=== PATIENT | female | born 1960 | race Caucasian/White ===

== ENCOUNTER 2017-05-17 16:47 | Emergency (ER) | payer OTHER ==
[~2017-05-17] VITALS: Ht 177.8 cm; Wt 80.3 kg
[2017-05-17] MEDS ORDERED: METFORMIN ER500 MG PO (16:59)
[2017-05-17] MEDS ORDERED: PHENERGAN25 M3 PO (17:00)
--- NOTE | 2017-05-17 17:16 | Emergency Room Report ---
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 Y Clinical Suspician of Infection? N Mental Status: 1 - Regular (Normal Baseline) Sepsis Risk:Low Sepsis Risk Have you (or family members/close friends) recently traveled outside the [place]? N If Yes, where/when: Have you had exposure to infectious disease within the past month? N TB? Other? Specify: Patient has had shortness of breath since Tuesday malaise and fatigue she states she's felt feverish on and off she is on an antibiotic for urinary tract infection and she states she was sent in for evaluation of possible new onset congestive heart failure. She has a cough this nonproductive some nausea denies any vomiting or diarrhea she denies any chills. She's had some headache but denies any headache now. He has any chest pain or abdominal pain she states she had some swelling in her legs about a week ago but none now. Denies any myalgias has weakness and malaise and fatigue dyspnea on exertion ALLERGIES Coded Allergies: Sulfa (Sulfonamide Antibiotics) (Intermediate, I-RASH 05/17/17) ciprofloxacin (From CIPRO) (Intermediate, I-RASH 05/17/17) nitrofurantoin (From MACROBID) (Intermediate, S-DIFF. BREATHING 05/17/17) Home Medications Reported Medications METFORMIN HCL (Metformin HCl ER) 500 MG PO BID #30 PROMETHAZINE HCL (Phenergan 25MG Tab (Geq)) 25 MG PO Q6HP PRN N/V #30 History Medical History General CAD? No Angina: No NM: No Hypertension? No Hyperlipidemia? No CHF? No DVT? No PE? No COPD? No Asthma? No Anemia? No GERD? No Gastric ulcers? No GI Bleed? No Hernia? No Thyroid Problems? No Hypothyroidism? No CVA? No Seizures? No Diabetes? Yes Insulin Dependent: No Insulin Pump: No Home FSBS? Yes Renal Insuffiency? No End Stage Renal Disease? No UTI? No Stones? No BPH? No GB Disease: No Nephritic Syndrome? No Asplenia? No Hepatitis? No Sickle Cell Disease? No Arthritis? No Migraines? No Cataracts? No Glaucoma? No MRSA? No HIV? No TB? No Anxiety? No Depression? No Cancer? No More? No Immunization Hx DT/Tetanus Unknown Surgical Hx Previous Surgery?Y APENDECTOMY LADLER Hx LMP N/A Social History Smoking Hx Smoker: Never Smoker Tobacco: No Alcohol Alcohol: No Review of Systems All Other Systems Reviewed and Negative Physical Exam Vital Signs Vital Signs Date Time Temp Pulse Resp B/P Pulse O2 O2 Flow FiO2 Ox Delivery Rate 05/17 1853 77 18 172/80 98 05/17 1825 69 18 157/71 98 05/17 1739 100 05/17 1653 99.0 76 16 156/96 99 General Appearance: Nontoxic Head: Normocephalic, without obvious abnormality, atraumatic. Eyes: conjunctiva/corneas clear ENT: Mucous membranes moist. Neck: No jugular venous distention. Cardiac: regular rate and rhythm Lungs: rhonchi auscultation bilaterally Abdomen: Nontender, Nondistended, positive bowel sounds, no rebound : No CVA tenderness Extremities: Trace edema Musculoskeletal: No chest wall tenderness Skin: No rashes or lesions to exposed skin. Neurologic: Alert. No gross focal deficits Psychiatric: Normal affect (Chrystal OLIVAS, Carlos) General Appearance normal appearance Respiratory Status No: respiratory distress. Cardiovascular no JVD Neurologic alert Medical Decision Making LABS/Meds/Orders Pt receiving controlled substance in ED? No Comment 646 the lab machine is down for the d-dimer and BNP is pending, urine here is grossly contaminated with epithelial cells will repeat a cath UA She states she's already been switched to another antibiotic that she has not picked up for her urinary tract infection she has a prescription at home she states her family doctor called her with a urine culture results and have her switch her antibiotics. There is no congestive heart failure present the BMP and chest x-ray are unremarkable we have checked for blood clots the d-dimer is normal. 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 Results/Orders Laboratory Tests 05/17/17 1905: Creatine Kinase Pending, CK-MB (CK-2) Rel Index Pending, CK and CKMB Interp Pending, Troponin I Pending 05/17/17 1739: Urine Color YELLOW, Urine Appearance CLEAR, Urine pH 7.0, Ur Specific [place] <= 1.005, Urine Protein NEGATIVE, Urine Ketones 1+ H, Urine Blood NEGATIVE, Urine Nitrate NEGATIVE, Urine Bilirubin NEGATIVE, Urine Urobilinogen 0.2, Ur Leukocyte Esterase 2+ H, Urine RBC NONE, Urine WBC 20-50, Ur Squamous Epith Cells 20-50, Urine Renal Cells 5-10, Urine Bacteria 1+, Urine Glucose NEGATIVE 05/17/17 1720: Lactic Acid 2.3 H 05/17/17 1720: Sodium 132 L, Potassium 4.2, Chloride 94 L, Carbon Dioxide 25, BUN 17, Creatinine 1.1 H, Estimated Creat Clear 71, Estimated GFR (MDRD) 51 L, Glucose 266 H, Calcium 9.9, B-Natriuretic Peptide 22, D-Dimer 347, WBC 11.9 H, RBC 4.84, Hgb 14.3, Hct 43.7, MCV 90.3, RDW 12.9, Plt Count 612 H, MPV 7.1 L, Gran % 69.2, Gran # 8.2 H, Lymphocytes % 27.0, Monocytes % 2.7, Eosinophils % 0.8, Basophils % 0.4, Lymphocytes # 3.2, Monocytes # 0.3, Eosinophils # 0.1, Basophils # 0.1, PUBS MCHC 32.7, MCH 29.5 Current Medication Orders Sig/Santino Start time Last Medication Dose Route Stop Time Status Admin Albuterol/Ipratropium 3 ML ONCE ONE 05/17 1915 DC INH 05/17 1916 Ondansetron HCl 4 MG ONCE ONE 05/17 1715 DC IV 05/17 1716 Sodium Chloride 10 ML PRN PRN 05/17 1715 AC IV 05/18 171 Orders Procedure Date/time Status CARDIAC ENZYMES 05/17 2200 Active RT REQUEST DUONEB 05/17 1905 Active CARDIAC ENZYMES 05/17 1900 Active URINALYSIS/COMPLETE 05/17 1847 Active LACTIC ACID FOLLOW UP 05/17 1754 Active CULTURE, URINE 05/17 173 Active CULTURE, BLOOD 05/17 171 Active URINALYSIS/COMPLETE 05/17 171 Complete LACTIC ACID 05/17 171 Complete ELECTROCARDIOGRAM REQUEST 05/17 171 Active PULSE OXIMETRY REQUEST 05/17 171 Active CHEST(2 VIEWS-NOT PORTABLE) 05/17 171 Active IV SALINE LOCK 05/17 171 Active OXYGEN PER NURSE 05/17 171 Active CONTOUR SANDER 05/17 171 Active D-DIMER 05/17 171 Complete CBC WITH AUTO DIFF 05/17 171 Complete BRAIN NATRIURETIC PEPTIDE 05/17 171 Complete BASIC METABOLIC PROFILE 05/17 171 Complete CM/EKG CM/teaching manager Rhythm Normal Sinus Rhythm Rate 69 Ectopy No Comments LEFT axis deviation nonspecific electrocardiogram EKG NSR, no ectopy Comments Nonspecific electrocardiogram LEFT axis deviation Departure Departure Time of Disposition 1914 Disposition DC Home or Self Care(routine) Clinical Impression Primary Impression: Dyspnea Qualifiers: Dyspnea type: unspecified Qualified Code: R06.00 - Dyspnea, unspecified Secondary Impressions: UTI (urinary tract infection) Qualifiers: Urinary tract infection type: acute cystitis Hematuria presence: without hematuria Qualified Code: N30.00 - Acute cystitis without hematuria Condition STABLE Patient Instructions DI for Shortness of Breath Additional Instructions Make sure you fill your antibiotic prescription for urinary tract infection that your doctor gave you Return if any chest pain or worsening shortness of breath or any problems Call your doctor tomorrow for recheck Discharge Counseling Counseled pt/family regarding diagnosis, test results, home care, follow up needs Prescriptions Current Visit Scripts Albuterol (Albuterol-Hfa Inhaler) 1-2 PUFFS IH Q6HP PRN SHORTNESS OF BREATH #1 INH ED Critical Care Critical Care No at 1918
--- NOTE | 2017-05-17 17:16 | Emergency Room Report ---
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 Y Clinical Suspician of Infection? N Mental Status: 1 - Regular (Normal Baseline) Sepsis Risk:Low Sepsis Risk Have you (or family members/close friends) recently traveled outside the [place]? N If Yes, where/when: Have you had exposure to infectious disease within the past month? N TB? Other? Specify: Patient has had shortness of breath since Tuesday malaise and fatigue she states she's felt feverish on and off she is on an antibiotic for urinary tract infection and she states she was sent in for evaluation of possible new onset congestive heart failure. She has a cough this nonproductive some nausea denies any vomiting or diarrhea she denies any chills. She's had some headache but denies any headache now. He has any chest pain or abdominal pain she states she had some swelling in her legs about a week ago but none now. Denies any myalgias has weakness and malaise and fatigue dyspnea on exertion ALLERGIES Coded Allergies: Sulfa (Sulfonamide Antibiotics) (Intermediate, I-RASH 05/17/17) ciprofloxacin (From CIPRO) (Intermediate, I-RASH 05/17/17) nitrofurantoin (From MACROBID) (Intermediate, S-DIFF. BREATHING 05/17/17) Home Medications Reported Medications METFORMIN HCL (Metformin HCl ER) 500 MG PO BID #30 PROMETHAZINE HCL (Phenergan 25MG Tab (Geq)) 25 MG PO Q6HP PRN N/V #30 History Medical History General CAD? No Angina: No RI: No Hypertension? No Hyperlipidemia? No CHF? No DVT? No PE? No COPD? No Asthma? No Anemia? No GERD? No Gastric ulcers? No GI Bleed? No Hernia? No Thyroid Problems? No Hypothyroidism? No CVA? No Seizures? No Diabetes? Yes Insulin Dependent: No Insulin Pump: No Home FSBS? Yes Renal Insuffiency? No End Stage Renal Disease? No UTI? No Stones? No BPH? No GB Disease: No Nephritic Syndrome? No Asplenia? No Hepatitis? No Sickle Cell Disease? No Arthritis? No Migraines? No Cataracts? No Glaucoma? No MRSA? No HIV? No TB? No Anxiety? No Depression? No Cancer? No More? 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 Eyes: conjunctiva/corneas clear ENT: Mucous membranes moist. Neck: No jugular venous distention. Cardiac: regular rate and rhythm Lungs: rhonchi auscultation bilaterally Abdomen: Nontender, Nondistended, positive bowel sounds, no rebound : No CVA tenderness Extremities: Trace edema Musculoskeletal: No chest wall tenderness Skin: No rashes or lesions to exposed skin. Neurologic: Alert. No gross focal deficits Psychiatric: Normal affect (Chrystal OLIVAS, Carlos) General Appearance normal appearance Respiratory Status No: respiratory distress. Cardiovascular no JVD Neurologic alert Medical Decision Making LABS/Meds/Orders Pt receiving controlled substance in ED? No Comment 646 the lab machine is down for the d-dimer and BNP is pending, urine here is grossly contaminated with epithelial cells will repeat a cath UA She states she's already been switched to another antibiotic that she has not picked up for her urinary tract infection she has a prescription at home she states her family doctor called her with a urine culture results and have her switch her antibiotics. There is no congestive heart failure present the BMP and chest x-ray are unremarkable we have checked for blood clots the d-dimer is normal. 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 Results/Orders Laboratory Tests 05/17/17 1905: Creatine Kinase Pending, CK-MB (CK-2) Rel Index Pending, CK and CKMB Interp Pending, Troponin I Pending 05/17/17 1739: Urine Color YELLOW, Urine Appearance CLEAR, Urine pH 7.0, Ur Specific [place] <= 1.005, Urine Protein NEGATIVE, Urine Ketones 1+ H, Urine Blood NEGATIVE, Urine Nitrate NEGATIVE, Urine Bilirubin NEGATIVE, Urine Urobilinogen 0.2, Ur Leukocyte Esterase 2+ H, Urine RBC NONE, Urine WBC 20-50, Ur Squamous Epith Cells 20-50, Urine Renal Cells 5-10, Urine Bacteria 1+, Urine Glucose NEGATIVE 05/17/17 1720: Lactic Acid 2.3 H 05/17/17 1720: Sodium 132 L, Potassium 4.2, Chloride 94 L, Carbon Dioxide 25, BUN 17, Creatinine 1.1 H, Estimated Creat Clear 71, Estimated GFR (MDRD) 51 L, Glucose 266 H, Calcium 9.9, B-Natriuretic Peptide 22, D-Dimer 347, WBC 11.9 H, RBC 4.84, Hgb 14.3, Hct 43.7, MCV 90.3, RDW 12.9, Plt Count 612 H, MPV 7.1 L, Gran % 69.2, Gran # 8.2 H, Lymphocytes % 27.0, Monocytes % 2.7, Eosinophils % 0.8, Basophils % 0.4, Lymphocytes # 3.2, Monocytes # 0.3, Eosinophils # 0.1, Basophils # 0.1, PUBS MCHC 32.7, MCH 29.5 Current Medication Orders Sig/Santino Start time Last Medication Dose Route Stop Time Status Admin Albuterol/Ipratropium 3 ML ONCE ONE 05/17 1915 DC INH 05/17 1916 Ondansetron HCl 4 MG ONCE ONE 05/17 1715 DC IV 05/17 1716 Sodium Chloride 10 ML PRN PRN 05/17 1715 AC IV 05/18 171 Orders Procedure Date/time Status CARDIAC ENZYMES 05/17 2200 Active RT REQUEST DUONEB 05/17 1905 Active CARDIAC ENZYMES 05/17 1900 Active URINALYSIS/COMPLETE 05/17 1847 Active LACTIC ACID FOLLOW UP 05/17 1754 Active CULTURE, URINE 05/17 173 Active CULTURE, BLOOD 05/17 171 Active URINALYSIS/COMPLETE 05/17 171 Complete LACTIC ACID 05/17 171 Complete ELECTROCARDIOGRAM REQUEST 05/17 171 Active PULSE OXIMETRY REQUEST 05/17 171 Active CHEST(2 VIEWS-NOT PORTABLE) 05/17 171 Active IV SALINE LOCK 05/17 171 Active OXYGEN PER NURSE 05/17 171 Active JEWEL BEARING DRILLER 05/17 171 Active D-DIMER 05/17 171 Complete CBC WITH AUTO DIFF 05/17 171 Complete BRAIN NATRIURETIC PEPTIDE 05/17 171 Complete BASIC METABOLIC PROFILE 05/17 171 Complete CM/EKG CM/precision crop manager Rhythm Normal Sinus Rhythm Rate 69 Ectopy No Comments LEFT axis deviation nonspecific electrocardiogram EKG NSR, no ectopy Comments Nonspecific electrocardiogram LEFT axis deviation Departure Departure Time of Disposition 1914 Disposition DC Home or Self Care(routine) Clinical Impression Primary Impression: Dyspnea Qualifiers: Dyspnea type: unspecified Qualified Code: R06.00 - Dyspnea, unspecified Secondary Impressions: UTI (urinary tract infection) Qualifiers: Urinary tract infection type: acute cystitis Hematuria presence: without hematuria Qualified Code: N30.00 - Acute cystitis without hematuria Condition STABLE Patient Instructions DI for Shortness of Breath Additional Instructions Make sure you fill your antibiotic prescription for urinary tract infection that your doctor gave you Return if any chest pain or worsening shortness of breath or any problems Call your doctor tomorrow for recheck Discharge Counseling Counseled pt/family regarding diagnosis, test results, home care, follow up needs Prescriptions Current Visit Scripts Albuterol (Albuterol-Hfa Inhaler) 1-2 PUFFS IH Q6HP PRN SHORTNESS OF BREATH #1 INH ED Critical Care Critical Care No at 1918
[2017-05-17 17:44] LABS: URINE BILIRUBIN - DIPSTICK NEGATIVE (NEG); URINE BLOOD NEGATIVE (NEG)
[2017-05-17 17:56] LABS: HEMOGLOBIN 14.3 g/dL (12.2-16.2); LYMPH # 3.2 K/mm3 (0.7-4.5)
[2017-05-17 18:04] LABS: URINE SQUAMOUS CELLS 20-50 #/hpf (0-5)
[2017-05-17] MEDS ORDERED: ALBUTEROL-200 PUFFS/ IH (19:18)
[2017-05-17 19:46] VITALS: BP 183/72
--- NOTE | 2017-05-18 08:13 | RADIOLOGY REPORT PS360 ---
CHEST(2 VIEWS-NOT PORTABLE) INDICATION: Shortness of breath COMPARISON: None FINDINGS: The lung paz are well expanded and appear clear of infiltrate. The cardiomediastinal silhouette and vascularity are normal. The costophrenic angles are clear. The bony thorax is normal. IMPRESSION: Normal chest.
--- OUTSIDE RECORDS SUMMARY | 2017-05-20 17:13 | External Medical Summary Rpt ---
Demographics Preferred Language Angolan Marital Status Unknown Yarsanism Affiliation Unknown Race Unknown Ethnic Group Unknown Author Author CINDY Address Unknown Phone Immunization Unable to retrieve immunization data due to connection failure with Immunization Registry. Please try again later.
--- OUTSIDE RECORDS SUMMARY | 2017-05-20 17:13 | External Medical Summary Rpt ---
Author Author CINDY Address Unknown Phone [email or web address] [facility] Purpose Continuity of Care Document - 05-17-2017 through 2016 Problems Code Diagnosis DOS Provider Status N39.0 URINARY TRACT INFECTION, SITE NOT SPECIFIED R06.00 DYSPNEA, UNSPECIFIED
--- OUTSIDE RECORDS SUMMARY | 2017-05-20 17:13 | External Medical Summary Rpt ---
Author Author [employer] Organization [employer] Address Unknown Phone Unavailable Purpose Continuity of Care Document - through 2016
--- OUTSIDE RECORDS SUMMARY | 2017-05-20 17:13 | External Medical Summary Rpt ---
Demographics Preferred Language Stateless Marital Status Unknown Baptist Affiliation Unknown Race Unknown Ethnic Group Unknown Author Author CINDY Address Unknown Phone Immunization Unable to retrieve immunization data due to connection failure with Immunization Registry. Please try again later.
--- OUTSIDE RECORDS SUMMARY | 2017-05-20 17:13 | External Medical Summary Rpt ---
Author Author CINDY Address Unknown Phone [email or web address] Purpose Continuity of Care Document - 05-17-2017 through 2016 Problems Code Diagnosis DOS Provider Status N39.0 URINARY TRACT INFECTION, SITE NOT SPECIFIED R06.00 DYSPNEA, UNSPECIFIED
== END 2017-05-17 19:51 | disposition home or self-care (01) ==
LOC: ER 16:47
PROVIDERS: Emergency Medicine
DX: R06.02 Shortness of breath (principal); N30.00 Acute cystitis without hematuria; E11.65 Type 2 diabetes mellitus with hyperglycemia